=== PATIENT | male | born 1955 | race Caucasian/White ===

== ENCOUNTER 2024-05-15 13:04 | Emergency (ER) | payer OTHER, SELFPAY ==
[2024-05-15 13:22] VITALS: BP 160/88
[2024-05-15 13:53] LABS: % Basophils 0.9 % (0-2); % Eosinophils 3.2 % (0-6); % Immature Granulocytes 0.8 % (0-0.5); % Lymphocytes 23.9 % (20.5-51.1); % Monocytes 8.6 % (1.7-9.3); % Neutrophils 62.6 % (42.2-75.2); Absolute Basophils 0.1 10^3/uL (0-0.2); Absolute Eosinophils 0.3 10^3/uL (0-0.7); Absolute Immature Granulocytes 0.1 10^3/uL (0-0.05); Absolute Lymphocytes 1.9 10^3/uL (1.2-3.4); Absolute Monocytes 0.7 10^3/uL (0.1-0.6); Absolute Neutrophils 4.9 10^3/uL (1.4-6.5); Hematocrit 47.8 % (39.0-52.0); Hemoglobin 16.1 g/dL (13.0-18.0); Mean Corp Hgb Conc. 33.7 g/dL (33.0-37.0); Mean Corpuscular Hgb 30.2 pg (27.0-31.0); Mean Corpuscular Volume 89.7 fL (80.0-94.0); Mean Platelet Volume 9.4 fL (7.4-10.4); Nucleated Red Blood Cells % 0 % (-); Platelet Count 222 10^3/uL (130-400); Red Blood Cell Count 5.33 10^6/uL (4.70-6.10); Red Cell Dist. Width 12.7 % (11.5-14.5); White Blood Cell Count 7.8 10^3/uL (4.8-10.8)
[2024-05-15 14:00] LABS: ALT (SGPT) 36 U/L (0-50); AST (SGOT) 31 U/L (17-59); Albumin 5.1 g/dl (3.5-5.0); Alkaline Phosphatase 64 U/L (38-126); Blood Urea Nitrogen 17 mg/dl (9-20); Calcium 9.8 mg/dl (8.4-10.2); Carbon Dioxide 24 mmol/L (22-30); Chloride 104 mmol/L (98-107); Glucose 101 mg/dl (70-99); Potassium 5.1 mmol/L (3.5-5.1); Sodium 139 mmol/L (135-145); Total Bilirubin 0.4 mg/dl (0.2-1.3); eGFR > 60.00
[2024-05-15 15:04] VITALS: BMI 29.5
[2024-05-15 15:07] VITALS: BP 135/102
--- NOTE | 2024-05-15 16:34 | ED.GENMED ---
History of Present Illness
General
Chief Complaint: Blood Pressure Problem
Source: patient
Exam Limitations: none
Time Seen by Provider: 05/15/24 15:06
History of Present Illness
History of Present Illness:
68-year-old male who presents for evaluation of hypertension. 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 But that was only few days ago. He was advised take up to 2 weeks or
more to have an effect. Patient reports no real symptoms. 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 He does state occasionally when walking to the mailbox he gets a little
lightheaded but denies chest pain. No shortness of breath. No patient's. He has had a cardiac catheterization 10 years ago and had multiple stress test that were all normal. Patient presents for evaluation but again is asymptomatic at the time
of evaluation
Past History
Past History
ED Past Medical History: HTN and Hypercholesterolemia
ED Past Surgical History: Orthopedic; Negative Cardiac
Social History
Tobacco: Non-smoker
Alcohol: Occasional
Drug: None
Personal:
Living: alone
Employment: Employed
Family History
Family History: CAD
Phy Exam
Physical Exam
Physical Exam:
CONSTITUTIONAL Patient alert and oriented to person, place and time. Well-appearing. Vital signs reviewed.
HEAD atraumatic, normocephalic.
EYES eyelids normal to inspection, Extraocular muscles intact, Conjunctiva normal, Sclera normal.
NECK normal range of motion, Trachea midline, no jugular venous distention.
RESPIRATORY CHEST No respiratory distress noted, Chest expansion equal, Bilateral breath sounds clear.
CARDIOVASCULAR regular rate and rhythm, Heart sounds normal.
ABDOMEN abdomen nontender, Bowel sounds normal. No distention.
BACK normal inspection, no obvious deformities
UPPER EXTREMITY range of motion normal, Motor strength normal, no cyanosis, no edema.
LOWER EXTREMITY range of motion normal, Motor strength normal, no cyanosis, no edema.
NEURO Speech normal, No focal motor deficits, Sharonda coma scale 15, Memory normal, Cranial Nerves intact to screening exam.
SKIN skin warm, dry, and normal in color.
Course
Orders/Labs/Results
Orders:
Orders
05/15/24 13:06
Electrocardiogram (*1) Urgent
Reason for Study: Other
Other Reason for Exam: elevated BP
EKG- Treatment ONCE
05/15/24 13:37
CMP [Comprehensive Metabolic Panel] Urgent
Complete Blood Count/With Diff Urgent
Abnormal Lab Results
05/15/24
13:37
Abs Immat Gran (auto) 0.1 H 10^3/uL
(0-0.05)
Absolute Monos (auto) 0.7 H 10^3/uL
(0.1-0.6)
Immature Gran % 0.8 H %
(0-0.5)
Glucose 101 H mg/dl
(70-99)
Albumin 5.1 H g/dl
(3.5-5.0)
05/15/24 13:37
05/15/24 13:37
Vital Signs
Initial and Last Documented VS:
Initial Vital Signs
Temp Pulse Resp BP Pulse Ox
98.5 F 73 20 160/88 97
05/15/24 13:22 05/15/24 13:22 05/15/24 13:22 05/15/24 13:22 05/15/24 13:22
Last Documented Vital Signs
Temp Pulse Resp BP Pulse Ox
98.5 F 58 16 135/102 98
05/15/24 13:22 05/15/24 15:07 05/15/24 15:07 05/15/24 15:07 05/15/24 15:07
MDM/Problems Addressed
MDM/Problems Addressed:
Uncontrolled hypertension
*Pulse Oximetry
Patient hypoxic: no
*EKG
Interpreted by ED Provider?: Yes
Interpretation: normal
Rate: normal
Rhythm: sinus
QRS Pattern: left bundle branch block
Ischemia: no ischemia
*Administrative Manager Interpretation
Rate: normal
Interpretation: normal
Rhythm: sinus
*Critical Care Note
Total Time (30-74mins, 75-104mins- exclusive of procedures): Not Applicable
Data Reviewed
Review of Other/Old Records Reveals: Records (Stress echocardiogram reviewed from September 2021)
Source: patient
Prescriptions/Medications Considered But Not Given:
Considered IV medications but blood pressure much improved
Patient Management
Escalation/DeEscalation of care consider admission/obs:
Patient appears well. Does have a left bundle branch block they did not have in 2021. He is being followed by cardiology. I think it is reasonable to add amlodipine. He will follow-up with cardiology. No symptoms here in the emergency
department labs grossly unremarkable.
ED Attending Note
-
Portions of this chart may have been created with voice recognition software.� Occasional wrong word or��sound alike� substitutions may have occurred due to the inherent limitations of voice recognition software.
Discharge Plan
Departure
Patient Disposition: Home (Routine Discharge)
Date of Disposition: 05/15/24
Time of Disposition: 16:36
Patient with high blood pressure during this ER visit?: Yes
Discharge Problem:
Uncontrolled hypertension
Instructions: High Blood Pressure (DC), BLOOD PRESSURE
Prescriptions:
New
amlodipine 5 mg tablet
5 mg PO DAILY Qty: 30 0RF
Referrals:
Mitch Srinivasan DO [Family Provider] -
Activity Restrictions/Additional Instructions:
Please see your doctor for follow-up in the next 2 weeks. Please be sure to continue to keep a log of your blood pressure. Return to ED for chest pain, shortness breath, weakness of any kind, vomiting, vision changes, headache or any other
concerns.
Interventions
Interventions:
*Risk Screen - Suicide Last Done: 05/15/24 13:22
*Neglect/Abuse Screening Last Done: 05/15/24 13:22
*Nursing Disposition Last Done: 05/15/24 17:09
ED- Cardiac Assessment Last Done: 05/15/24 15:04
ED- Neurological Assessment Last Done: 05/15/24 15:04
ED- Pulmonary Assessment Last Done: 05/15/24 15:04
Discharge Date and Time
Discharge Date/Time: 05/15/24 17:09
Print Language: MONGOLIAN
== END 2024-05-15 17:09 | disposition home or self-care (01) ==
LOC: EMR 13:04
PROVIDERS: Student in an Organized Health Care Education/Training Program; EMERGENCY PHYSICIAN Emergency Medicine; FAMILY PHYSICIAN Family Medicine
DX: I10 Essential (primary) hypertension (principal); E78.00 Pure hypercholesterolemia, unspecified; R42 Dizziness and giddiness; Z82.49 Family history of ischemic heart disease and other diseases of the circulatory system
CPT/HCPCS: 99283; 80053; 85025; 93005

== ENCOUNTER → 2024-07-21 07:08 | Outpatient (REF) | payer OTHER, SELFPAY | LOC: RCS 07:08 | PROVIDERS: ATTENDING PHYSICIAN Internal Medicine Cardiovascular Disease; FAMILY PHYSICIAN Family Medicine | DX: I25.118 Atherosclerotic heart disease of native coronary artery with other forms of angina pectoris (principal); R06.02 Shortness of breath | CPT/HCPCS: 93306 ==

== ENCOUNTER → 2024-07-28 09:47 | Outpatient (REF) | payer OTHER, SELFPAY | LOC: RAD 09:47 | PROVIDERS: ATTENDING PHYSICIAN Internal Medicine Cardiovascular Disease; FAMILY PHYSICIAN Family Medicine | DX: I25.118 Atherosclerotic heart disease of native coronary artery with other forms of angina pectoris (principal) | CPT/HCPCS: 75574; Q9967 ==

== ENCOUNTER 2024-08-14 06:37 | Day surgery (SDC) | payer OTHER, SELFPAY ==
[2024-08-12 11:44] VITALS: BMI 30.2
[2024-08-12 12:44] LABS: % Basophils 0.7 % (0-2); % Eosinophils 6.1 % (0-6); % Immature Granulocytes 0.7 % (0-0.5); % Lymphocytes 26.3 % (20.5-51.1); % Monocytes 11.1 % (1.7-9.3); % Neutrophils 55.1 % (42.2-75.2); Absolute Basophils 0.1 10^3/uL (0-0.2); Absolute Eosinophils 0.4 10^3/uL (0-0.7); Absolute Immature Granulocytes 0.1 10^3/uL (0-0.05); Absolute Lymphocytes 1.8 10^3/uL (1.2-3.4); Absolute Monocytes 0.8 10^3/uL (0.1-0.6); Absolute Neutrophils 3.9 10^3/uL (1.4-6.5); Hematocrit 47.3 % (39.0-52.0); Hemoglobin 15.6 g/dL (13.0-18.0); Mean Corpuscular Hgb 29.4 pg (27.0-31.0); Mean Corpuscular Volume 89.1 fL (80.0-94.0); Mean Platelet Volume 9.3 fL (7.4-10.4); Nucleated Red Blood Cells % 0 % (-); Platelet Count 216 10^3/uL (130-400); Red Blood Cell Count 5.31 10^6/uL (4.70-6.10); Red Cell Dist. Width 13.2 % (11.5-14.5)
[2024-08-12 12:59] LABS: ALT (SGPT) 41 U/L (0-50); AST (SGOT) 32 U/L (17-59); Albumin 4.9 g/dl (3.5-5.0); Alkaline Phosphatase 65 U/L (38-126); Blood Urea Nitrogen 24 mg/dl (9-20); Calcium 9.9 mg/dl (8.4-10.2); Carbon Dioxide 26 mmol/L (22-30); Chloride 102 mmol/L (98-107); Estimated Creatinine Clearance 75 ml/min; Glucose 95 mg/dl (70-99); Potassium 5.4 mmol/L (3.5-5.1); Sodium 137 mmol/L (135-145); Total Bilirubin 0.7 mg/dl (0.2-1.3); Total Protein 7.7 g/dl (6.3-8.2); eGFR > 60.00
[2024-08-14] VITALS (12 sets, daily range): BP systolic 109–136; BP diastolic 64–79; BMI 29.7
[2024-08-14] MEDS: NSS 265 ML IV (07:34)
[2024-08-14 09:35] LABS: ACT-LR - POC 128 Seconds (116-155)
[2024-08-14 09:52] LABS: ACT-LR - POC 227 Seconds (116-155)
[2024-08-14 10:00] LABS: ACT-LR - POC 271 Seconds (116-155)
[2024-08-14 11:18] LABS: ACT-LR - POC > 397 Seconds (116-155)
--- NOTE | 2024-08-14 11:22 | ITS.CL.CATH ---
Supervisor [facility] - Catheterization
Cardiac Catheterization
Procedure Report:
LEFT HEART CATH AND CORONARY INTERVENTION
Date of Procedure: August 14, 2024
Referring: Dr. Taurus Sol
PROCEDURES:
1. Left heart catheterization with coronary and single-plane left ventriculography
2. Successful stenting of ostial to mid LAD with placement of a 3.25 x 23 mm Xience stent that was implanted at nominal pressures and postdilated with a 3.5 mm noncompliant balloon to nominal pressures distally and 18 clovis proximal
3. Intravascular ultrasound
INDICATION: This is a 68-year-old physically active gentleman who reported the onset of worsened exertional dyspnea and occasional chest tightness. He had prior history of moderate but noncritical coronary disease. At times he can exercise to high
levels well at other times he will experience chest discomfort at lower levels of exertion as when pulling garbage cans from the curb back to his house. He is now referred for coronary angiography.
ACCESS: Right radial artery, 6 [place] sheath
HEMODYNAMICS (mmHg):
AO (s/d, m) : 129/72
LV (s/d) : 127/11
LVEDP : 20
CORONARY FINDINGS
Dominance: Right
LEFT MAIN: Normal
LEFT ANTERIOR DESCENDING: The LAD arises normally from the left main running in the anterior interventricular groove. There is a new hazy 60-70% ostial-proximal LAD stenosis. The remainder of the LAD has diffuse noncritical luminal irregularities
RAMUS: Stenosis small to medium caliber ramus
CIRCUMFLEX: The circumflex is a moderate caliber nondominant vessel supplying a small OM1, OM 2 and terminating in a moderate caliber OM 3. The circumflex is widely patent
RIGHT CORONARY: The right coronary artery is a dominant vessel that is widely patent over its course.
VENTRICULOGRAPHY: Left ventriculography was performed in an ESTRELLA projection. The digital single-plane left ventricular ejection fraction is estimated at 60%
ANGIOPLASTY PROCEDURE DETAIL: Upon review of the diagnostic catheterization films the decision was made to proceed with percutaneous revascularization of the high-grade stenosis at the origin of the LAD. A 600 mg loading dose of clopidogrel was
administered prior to the interventional procedure. Intravenous heparin was given and the ACT was monitored throughout the procedure. The patient received 9000 units of heparin with no significant bump in the ACT. The intravenous line was
reassessed and secondary access was obtained. Additional heparin was given. Ultimately, the ACT was measured within therapeutic limits and became out of range high. At this point we proceeded with the interventional procedure with the origin of
the left main being cannulated with a 6 [place] XB 3.5 guide catheter. A short BMW guidewire was advanced beyond the ostial/proximal stenosis and into the distal vessel. A long BMW guidewire was advanced to the distal circumflex. Primary stenting
was undertaken with placement of a 3.25 x 23 mm Xience stent that was implanted at nominal pressures.
Intravascular ultrasound was then performed. Luminal diameter appeared around 3.5 mm at the distal edge of the stent. There is a large plaque burden in the proximal LAD with a luminal diameter above 4 mm in diameter.
A 3.5 x 15 mm Trek noncompliant balloon was advanced over the guidewire and inflated to nominal pressures distally. The midportion and proximal portion of the stent were postdilated to 18 clovis with a 3.5 mm noncompliant balloon achieving a final
luminal diameter close to 3.7 mm
SEDATION: 89 minutes of procedural sedation was utilized. An independent medical secretary receptionist was present to assist with and help manage the patient's level of consciousness and physiologic status
RADIATION SUMMARY: Fluoro Time (min): 12.2, Dose (mGy): 1047, DAP (Gy.cm2) : 74.7
CONCLUSIONS
1. Successful stenting of ostial/proximal LAD with a 3.25 x 23 mm Xience stent that was implanted at nominal pressures and postdilated to high pressures with a 3.5 mm noncompliant balloon
2. Preserved left ventricular systolic function
RECOMMENDATIONS
1. Uninterrupted dual antiplatelet therapy for 1 year
2. Will change simvastatin to atorvastatin 80 mg for goal LDL clearly less than 70 mg/dL and preferably closer to 55
Copy to: Dr. Taurus Sol
--- NOTE | 2024-08-14 14:38 | W.PN.UPDATE ---
Update Note
Progress Note Update
Pt seen post LAD PCI. Right radial cath site without ht/bleeding, non tender. OOB ambulating. Post EKG NSR w/LBBB as before, 60s, no acute changes. Pt understands importance of uninterrupted DAPT w/asa, plavix. New start atorvastatin 80mg daily.
Cardiac rehab consulted. Followup at [facility] as scheduled. Home later today if cath site/tele remain stable.
== END 2024-08-14 16:20 | disposition home or self-care (01) ==
LOC: CATH 06:37
PROVIDERS: ATTENDING PHYSICIAN Internal Medicine Interventional Cardiology; FAMILY PHYSICIAN Family Medicine; OTHER PHYSICIAN Internal Medicine Cardiovascular Disease
DX: I25.10 Atherosclerotic heart disease of native coronary artery without angina pectoris (principal); E66.9 Obesity, unspecified; E78.5 Hyperlipidemia, unspecified; I10 Essential (primary) hypertension; R42 Dizziness and giddiness; R06.02 Shortness of breath; N40.0 Benign prostatic hyperplasia without lower urinary tract symptoms; M19.90 Unspecified osteoarthritis, unspecified site; Z79.82 Long term (current) use of aspirin; Z79.899 Other long term (current) drug therapy; Z82.49 Family history of ischemic heart disease and other diseases of the circulatory system; Z80.9 Family history of malignant neoplasm, unspecified
CPT/HCPCS: 99152; 99153; 92978; 36415; 80053; 85025; 85347; 93005; 93458; C1725; C1753; C1769; C1874; C1887; C1894; C9600; Q9967